=== PATIENT | male | born 1970 | race Caucasian/White ===

== ENCOUNTER 2018-02-24 12:43 | Emergency (ER) | payer SELFPAY ==
[~2018-02-24] VITALS: Ht 182.9 cm; Wt 74.8 kg
--- NOTE | 2018-02-24 13:18 | NUR ---
REINIER PATEL IS AT THE BEDSIDE.
--- NOTE | 2018-02-24 13:22 | NUR ---
PT IS NOT ABLE TO GIVE A URINE SAMPLE AT THIS TIME. LEEANN MONTANA IS AWARE.
[2018-02-24 13:29] LABS: EOSINOPHILS % (AUTO) 0.1 % (0.0-6.0); NEUTROPHILS # (AUTO) 5.5 /CMM (1.8-8.9)
[2018-02-24 13:36] LABS: BASOPHILS # (AUTO) 0.1 /CMM (0.0-0.2); BASOPHILS % (AUTO) 0.5 % (0.0-2.0); HEMATOCRIT 49 % (39-51); LYMPHOCYTES # (AUTO) 4.3 /CMM (0.8-4.8); MEAN CORPUSCULAR HGB CONC 35 g/dl (31.0-36.0); MEAN CORPUSCULAR VOLUME 90 fL (80-96); MONOCYTES # (AUTO) 0.8 /CMM (0.1-1.30); MONOCYTES % (AUTO) 7.3 % (2.0-12.0); NEUTROPHILS % (AUTO) 52.1 % (43.0-81.0); PLATELET COUNT (AUTO) 306 /CMM (150-450); RDW COEFFICIENT OF VARIATION 13.6 (11.5-15.0); RED BLOOD CELL COUNT(AUTO) 5.45 MIL/uL (4.5-6.0); WHITE BLOOD COUNT (AUTO) 10.7 K/uL (4.3-11.0)
[2018-02-24 13:39] LABS: CALCIUM, SERUM 8.7 mg/dL (8.5-10.1); CREATININE 0.7 mg/dL (0.6-1.3); POTASSIUM 3.8 mmol/L (3.5-5.1)
[2018-02-24 13:46] LABS: ALBUMIN 4.3 g/dL (3.4-5.0); BILIRUBIN,DIRECT 0.1 mg/dL (0.0-0.2); BILIRUBIN,TOTAL 0.6 mg/dL (0.2-1.0); TOTAL PROTEIN, SERUM 8.6 g/dL (6.4-8.2)
[2018-02-24 13:47] LABS: SALICYLATE 1.2 mg/dL (2.8-20.0)
--- NOTE | 2018-02-24 14:36 | NUR ---
PT REMOVED BP CUFF AND PULSE OX. PT IS STILL UNABLE TO GIVE A URINES SAMPLE.
--- NOTE | 2018-02-24 16:28 | NUR ---
PT APPEARS TO BE RESTING COMFORTABLY WITH NO S/S OF PAIN OR DISTRESS.
--- NOTE | 2018-02-24 16:55 | NUR ---
CALLED FOR DINNER TRAY FOR PT.
--- NOTE | 2018-02-24 16:56 | NUR ---
Massimo garcia in [facility] - 02/24/18 at 1659 by CHITRA CALLED FOR MATTHEW GOLDMAN FOR PT.
[2018-02-24 18:41] LABS: APPEARANCE,URINE Clear (CLEAR); BILIRUBIN,URINE Negative (NEGATIVE); BLOOD, URINE Moderate Ery/uL (NEGATIVE); COLOR,URINE Yellow (YELLOW); KETONES,URINE 80 (NEGATIVE); LEUKOCYTE ESTERASE ,URINE Negative (NEGATIVE); NITRITE, URINE Negative (NEGATIVE); PH,URINE 5.5 (5.0-8.0); PROTEIN,URINE >=300 mg/dl (NEGATIVE); UGLUCOSE Negative (NEGATIVE); UROBILINOGEN,URINE 0.2 EU/dL (0.2)
[2018-02-24 18:53] LABS: BACTERIA,URINE Many /HPF (None Seen); SQUAMOUS EPITHELIAL CELL,UR Few /HPF (None Seen)
[2018-02-24 18:56] LABS: WBC,URINE 0-2 /HPF (0-3)
[2018-02-24 18:57] LABS: MUCUS,URINE Many /LPF (None Seen)
[2018-02-24 19:00] VITALS: BP 135/82
--- NOTE | 2018-02-24 19:01 | NUR ---
PT WAS CLEARED FOR DISCHARGE BY LEEANN MONTANA. PT DENIES SI OR HI. Patient discharged to home in stable condition. Written and verbal after care instructions given. Patient verbalizes understanding of instruction. PT TO CHECK IN TO REHAB TONIGHT. PT TOOK UBER HOME. VSS. PT AMBULATED OUT WITH A STEADY GAIT.
--- NOTE | 2018-02-24 19:14 | NUR ---
Massimo garcia in [facility] - 02/24/18 at 1914 by CHITRA REPORT GIVEN TO JOSEMANUEL PHAN FOR DAVID.
== END 2018-02-24 19:04 | disposition home or self-care (01) ==
LOC: ER 12:45
DX: F10.129 Alcohol abuse with intoxication, unspecified (principal); F17.200 Nicotine dependence, unspecified, uncomplicated; F32.9 Major depressive disorder, single episode, unspecified; R94.31 Abnormal electrocardiogram [ECG] [EKG]; R82.79 Other abnormal findings on microbiological examination of urine
CPT/HCPCS: 36415; 80048; 80076; 80305; 80329; 81001; 85025; 87086; 93005; 99285; 99406; A4606; G0480 ×2; Z7610; 81000-TC